=== PATIENT | female | born 1990 | race Caucasian/White ===

== ENCOUNTER 2022-08-10 06:58 | Emergency (ER) | payer MEDICAID ==
[~2022-08-10] VITALS: Ht 157.5 cm; Wt 84.1 kg
[2022-08-10] MEDS ORDERED: PRED1 PO (07:20)
[2022-08-10] MEDS ORDERED: FAMO20 PO (07:20)
[2022-08-10] MEDS ORDERED: DIPH25CA85 PO (07:20)
[2022-08-10] MEDS ORDERED: DiphenhydrAMINE HCL 50 MG/ML VIAL IM ONE (07:45)
[2022-08-10 08:00] VITALS: BP 134/77
== END 2022-08-10 08:07 | disposition home or self-care (01) ==
LOC: EMS 07:02
DX: T78.40XA Allergy, unspecified, initial encounter (principal); L50.9 Urticaria, unspecified; Z90.49 Acquired absence of other specified parts of digestive tract; X58.XXXA Exposure to other specified factors, initial encounter
CPT/HCPCS: 99283; 96372; J1200